=== PATIENT | male | born 1990 | race Caucasian/White ===

== ENCOUNTER 2017-11-05 09:27 | Inpatient (IN) | payer MEDICAID, MEDICARE ==
[~2017-11-05] VITALS: Ht 167.6 cm; Wt 103.4 kg
[2017-11-05 09:28] VITALS: BP 131/93
[2017-11-05 09:48] LABS: BASOPHILS % (AUTO) 0.2 % (0.0-2.0); EOSINOPHILS # (AUTO) 0.2 K/uL (0-0.4); EOSINOPHILS % (AUTO) 2.4 % (0.0-4.0); HEMATOCRIT 46.2 % (36-52); HEMOGLOBIN 15.6 g/dL (12.0-18.0); LYMPHOCYTES # (AUTO) 2.3 K/uL (2.0-11.5); MEAN CORPUSCULAR HEMOGLOBIN 27 pg (27-31); MEAN CORPUSCULAR HGB CONC 34 g/dL (33-37); MEAN CORPUSCULAR VOLUME 80.8 fL (80-94); MONOCYTES # (AUTO) 0.5 K/uL (0.8-1.0); MONOCYTES % (AUTO) 6.9 % (1.7-9.3); NEUTROPHILS # (AUTO) 4.7 K/uL (1.8-7.7); NEUTROPHILS % (AUTO) 60.5 % (42.2-75.2); PLATELET COUNT (AUTO) 296 K/uL (140-450); RED BLOOD CELL COUNT(AUTO) 5.72 MIL/uL (4.20-6.10); RED CELL DISTRIBUTION WIDTH 13.4 % (11.6-13.7); WHITE BLOOD COUNT (AUTO) 7.8 K/uL (4.8-10.8)
[2017-11-05 10:03] LABS: ALBUMIN 3.7 g/dL (3.4-5.0); ANION GAP 12.2 (8-16); ASPARTATE AMINOTRANSFERASE 14 U/L (15-37); CHLORIDE 105 mmol/L (98-107); GFR ARICAN-AMERICAN 115 mL/min (>90); GLUCOSE 109 mg/dL (74-106); POTASSIUM 4.2 mmol/L (3.5-5.1); SODIUM SERUM 139 mmol/L (136-145); TOTAL BILIRUBIN 0.7 mg/dL (0.0-1.0); UREA NITROGEN, BLOOD 9 mg/dL (7-18)
[2017-11-05 10:04] LABS: ACETAMINOPHEN < 0.5 ug/ml (10-30); SALICYLATE < 2.8 mg/dL (2.8-20.0)
[2017-11-05] MEDS ORDERED: ACETAMINOPHEN 325 MG TAB PO ONE (10:40)
[2017-11-05 10:47] LABS: APPEARANCE,URINE CLEAR (CLEAR); BILIRUBIN,URINE NEGATIVE (NEGATIVE); BLOOD, URINE NEGATIVE (NEGATIVE); COLOR,URINE YELLOW (YELLOW); LEUKOCYTE ESTERASE ,URINE TRACE (NEGATIVE); NITRITE, URINE NEGATIVE (NEGATIVE); PH,URINE 6.5 (5.0-9.0); UGLUCOSE NEGATIVE (NEGATIVE)
[2017-11-05 10:53] LABS: RBC,URINE NONE SEEN /HPF (0-5); WBC,URINE 0-5 (RARE) /HPF (0-5)
[2017-11-05 11:19] LABS: BARBITURATE, URINE NEG. ng/ml (NEG <=200); BENZODIAZEPINE, URINE NEG. ng/mL (NEG <=200); CANNABINOID, URINE NEG. ng/mL (NEG <=50); COCAINE, URINE NEG. ng/mL (NEG <=300); OPIATE, URINE NEG. ng/mL (NEG <=2000); PHENCYCLIDINE SCREEN,URINE NEG. ng/mL (NEG <=25)
[2017-11-05 14:35] VITALS: BP 133/89
[2017-11-05 16:00] VITALS: BP 112/55
[2017-11-05 17:51] LABS: FREE T4 (FREE THYROXINE) 1.15 ng/dL (0.76-1.46); MAGNESIUM 1.9 mg/dL (1.8-2.4); PHOSPHORUS 2.3 mg/dL (2.5-4.9); THYROID STIMULATING HORMONE 1.8 uIU/mL (0.34-3.74)
[2017-11-05 20:00] VITALS: BP 135/86
[2017-11-06] VITALS: BP 118/63
[2017-11-06 04:00] VITALS: BP 129/85
[2017-11-06 06:53] LABS: BASOPHILS % (AUTO) 0.4 % (0.0-2.0); EOSINOPHILS # (AUTO) 0.3 K/uL (0-0.4); HEMOGLOBIN 15.2 g/dL (12.0-18.0); LYMPHOCYTES # (AUTO) 2.9 K/uL (2.0-11.5); LYMPHOCYTES % (AUTO) 31.3 % (20.5-51.1); MEAN CORPUSCULAR HEMOGLOBIN 28 pg (27-31); MEAN CORPUSCULAR HGB CONC 34 g/dL (33-37); MEAN CORPUSCULAR VOLUME 81.3 fL (80-94); MONOCYTES # (AUTO) 0.9 K/uL (0.8-1.0); MONOCYTES % (AUTO) 10.1 % (1.7-9.3); NEUTROPHILS % (AUTO) 55.2 % (42.2-75.2); PLATELET COUNT (AUTO) 277 K/uL (140-450); RED BLOOD CELL COUNT(AUTO) 5.54 MIL/uL (4.20-6.10); RED CELL DISTRIBUTION WIDTH 13.6 % (11.6-13.7); WHITE BLOOD COUNT (AUTO) 9.1 K/uL (4.8-10.8)
[2017-11-06 07:01] LABS: ANION GAP 11.6 (8-16); CARBON DIOXIDE 26.5 mmol/L (21-32); CREATININE 0.8 mg/dL (0.7-1.3); POTASSIUM 4.1 mmol/L (3.5-5.1)
[2017-11-06 08:02] VITALS: BP 129/78
[2017-11-06 08:07] LABS: CHOL/HDL RATIO 3.2 (1-4.5); MAGNESIUM 1.8 mg/dL (1.8-2.4); PHOSPHORUS 3.9 mg/dL (2.5-4.9)
[2017-11-06] MEDS ORDERED: LACTOBACILLUS RHAMNOSUS GG 1 EACH CAP PO SCH (10:30)
[2017-11-06 16:00] VITALS: BP 124/86
[2017-11-06] MEDS ORDERED: QUEtiapine FUMARATE 25 MG TAB PO SCH (16:30)
[2017-11-06 20:00] VITALS: BP 122/69
[2017-11-06] MEDS: QUEtiapine FUMARATE 25 MG TAB PO SCH (21:41)
[2017-11-07] VITALS: BP 118/68
[2017-11-07 07:27] LABS: BASOPHILS % (AUTO) 0.2 % (0.0-2.0); EOSINOPHILS # (AUTO) 0.3 K/uL (0-0.4); EOSINOPHILS % (AUTO) 3.5 % (0.0-4.0); HEMATOCRIT 45.4 % (36-52); HEMOGLOBIN 15.5 g/dL (12.0-18.0); LYMPHOCYTES # (AUTO) 2.6 K/uL (2.0-11.5); LYMPHOCYTES % (AUTO) 31.1 % (20.5-51.1); MEAN CORPUSCULAR HEMOGLOBIN 27 pg (27-31); MEAN CORPUSCULAR HGB CONC 34 g/dL (33-37); MEAN CORPUSCULAR VOLUME 80.5 fL (80-94); MONOCYTES # (AUTO) 0.7 K/uL (0.8-1.0); MONOCYTES % (AUTO) 8.1 % (1.7-9.3); NEUTROPHILS # (AUTO) 4.8 K/uL (1.8-7.7); NEUTROPHILS % (AUTO) 57.1 % (42.2-75.2); PLATELET COUNT (AUTO) 285 K/uL (140-450); RED BLOOD CELL COUNT(AUTO) 5.64 MIL/uL (4.20-6.10); RED CELL DISTRIBUTION WIDTH 13.3 % (11.6-13.7); WHITE BLOOD COUNT (AUTO) 8.5 K/uL (4.8-10.8)
[2017-11-07 07:42] LABS: MAGNESIUM 1.8 mg/dL (1.8-2.4); PHOSPHORUS 3.5 mg/dL (2.5-4.9)
[2017-11-07 07:47] LABS: ANION GAP 10.6 (8-16); CARBON DIOXIDE 26.7 mmol/L (21-32); CREATININE 0.9 mg/dL (0.7-1.3); POTASSIUM 4.3 mmol/L (3.5-5.1)
[2017-11-07 08:00] VITALS: BP 128/79
[2017-11-07] MEDS: LACTOBACILLUS RHAMNOSUS GG 1 EACH CAP PO SCH (08:23)
[2017-11-07] MEDS: QUEtiapine FUMARATE 25 MG TAB PO SCH ×2 (08:23→21:02)
[2017-11-07 16:00] VITALS: BP 140/82
[2017-11-07 20:00] VITALS: BP 117/75
[2017-11-07] MEDS: ACETAMINOPHEN 325 MG TAB PO PRN (21:02)
[2017-11-08] VITALS: BP 125/68
[2017-11-08] MEDS: ACETAMINOPHEN 325 MG TAB PO PRN (04:35)
[2017-11-08 07:36] LABS: BASOPHILS % (AUTO) 0.3 % (0.0-2.0); EOSINOPHILS # (AUTO) 0.3 K/uL (0-0.4); EOSINOPHILS % (AUTO) 3.5 % (0.0-4.0); HEMATOCRIT 47.6 % (36-52); LYMPHOCYTES # (AUTO) 2.5 K/uL (2.0-11.5); LYMPHOCYTES % (AUTO) 29.9 % (20.5-51.1); MEAN CORPUSCULAR HEMOGLOBIN 27 pg (27-31); MEAN CORPUSCULAR HGB CONC 34 g/dL (33-37); MEAN CORPUSCULAR VOLUME 80.1 fL (80-94); MONOCYTES # (AUTO) 0.7 K/uL (0.8-1.0); MONOCYTES % (AUTO) 8.4 % (1.7-9.3); NEUTROPHILS # (AUTO) 4.9 K/uL (1.8-7.7); NEUTROPHILS % (AUTO) 57.9 % (42.2-75.2); PLATELET COUNT (AUTO) 289 K/uL (140-450); RED BLOOD CELL COUNT(AUTO) 5.95 MIL/uL (4.20-6.10); RED CELL DISTRIBUTION WIDTH 13.1 % (11.6-13.7); WHITE BLOOD COUNT (AUTO) 8.5 K/uL (4.8-10.8)
[2017-11-08 08:00] VITALS: BP 133/82
[2017-11-08 08:47] LABS: ANION GAP 14.5 (8-16); CARBON DIOXIDE 26.8 mmol/L (21-32); CREATININE 0.9 mg/dL (0.7-1.3); POTASSIUM 4.3 mmol/L (3.5-5.1)
[2017-11-08] MEDS: QUEtiapine FUMARATE 25 MG TAB PO SCH (09:07)
[2017-11-08] MEDS: LACTOBACILLUS RHAMNOSUS GG 1 EACH CAP PO SCH (09:07)
[2017-11-08] MEDS ORDERED: QUET25TA46 PO (10:16)
== END 2017-11-08 14:20 | disposition home or self-care (01) | DRG 812 ==
LOC: MED 09:27 → MTU 14:02
PROVIDERS: ADMIT Family Medicine; ATTEND Family Medicine
DX: T43.621A Poisoning by amphetamines, accidental (unintentional), initial encounter (principal); G92 Toxic encephalopathy; F10.99 Alcohol use, unspecified with unspecified alcohol-induced disorder; F15.250 Other stimulant dependence with stimulant-induced psychotic disorder with delusions; F20.1 Disorganized schizophrenia; E83.39 Other disorders of phosphorus metabolism; N39.0 Urinary tract infection, site not specified; Z59.0 Homelessness; F20.9 Schizophrenia, unspecified; F41.0 Panic disorder [episodic paroxysmal anxiety]; Z87.891 Personal history of nicotine dependence; F41.9 Anxiety disorder, unspecified; Y92.89 Other specified places as the place of occurrence of the external cause
CPT/HCPCS: 36415; 70450; 71045; 80048; 80053; 80305; 81001; 82140; 82550; 83036; 83735; 84100; 84439; 84443; 84484; 85025; 87081; 93005; 99285; G0480; G0482; J0696; J7060

== ENCOUNTER 2018-10-31 16:17 | Emergency (ER) | payer BC, MEDICARE ==
[~2018-10-31] VITALS: Ht 177.8 cm; Wt 81.6 kg
[~2018-10-31 16:17] MED LIST: QUET25TA46 PO
--- NOTE | 2018-10-31 16:19 | NUR ---
PT MARZENAA BLS TO ER BED 09
[2018-10-31 16:27] VITALS: BP 130/85
--- NOTE | 2018-10-31 16:34 | NUR ---
[place] [employer] OFFICER NEO AT BEDSIDE. PT WITH R WRIST HANDCUFFED TO [facility]. DR. BANKS AT BEDSIDE TO EVALUATE PT. PT ST ON MONITOR. HR 134. PT REFUSING TO ANSWER SOME ASSESSMENT QUESTIONS. PT AWAKE, ALERT, BREATHING EVEN AND UNLABORED. PT APPEARS UNKEMPT.
[2018-10-31] MEDS ORDERED: LORazepam 2 MG/ML VIAL IVP ONE (16:40)
[2018-10-31] MEDS ORDERED: NACL 0.9% 1,000 ML IV ONE (16:40)
--- NOTE | 2018-10-31 16:48 | NUR ---
LAB AT BEDSIDE
--- NOTE | 2018-10-31 16:50 | NUR ---
LAB AT BEDSIDE TO DRAW BLOOD.
--- NOTE | 2018-10-31 16:50 | NUR ---
PT BIB EMS AND PD C/O ALOC. PT AWAKE AND ALERT, ABLE TO FOLLOW DIRECTIONS. PT REFUSING TO ANSWER SOME ASSESSMENT QUESTIONS. PT A&O3 MINUS TIME. PT SINUS TACHYCARDIA ON MONITOR. HR 134. BREATHING EVEN AND UNLABORED. SKIN PINK, WARM, DRY, INTACT.
[2018-10-31 17:03] LABS: BASOPHILS # (AUTO) 0.1 K/uL (0.00-0.22); EOSINOPHILS # (AUTO) 0.1 K/uL (0-0.4); HEMATOCRIT 45.4 % (36-52); HEMOGLOBIN 15.4 g/dL (12.0-18.0); LYMPHOCYTES # (AUTO) 1.4 K/uL (2.0-11.5); LYMPHOCYTES % (AUTO) 12.1 % (20.5-51.1); MEAN CORPUSCULAR HEMOGLOBIN 28 pg (27-31); MEAN CORPUSCULAR HGB CONC 34 g/dL (33-37); MEAN CORPUSCULAR VOLUME 81.9 fL (80-94); MONOCYTES # (AUTO) 0.6 K/uL (0.8-1.0); MONOCYTES % (AUTO) 5.6 % (1.7-9.3); NEUTROPHILS # (AUTO) 9.2 K/uL (1.8-7.7); NEUTROPHILS % (AUTO) 80.3 % (42.2-75.2); PLATELET COUNT (AUTO) 288 K/uL (140-450); RED BLOOD CELL COUNT(AUTO) 5.54 MIL/uL (4.20-6.10); RED CELL DISTRIBUTION WIDTH 13.5 % (11.6-13.7); WHITE BLOOD COUNT (AUTO) 11.5 K/uL (4.8-10.8)
[2018-10-31 17:10] LABS: ANION GAP 13.5 (8-16); CARBON DIOXIDE 26.2 mmol/L (21-32); CREATININE 1.1 mg/dL (0.7-1.3); POTASSIUM 3.7 mmol/L (3.5-5.1)
[2018-10-31 17:18] LABS: ALBUMIN 3.7 g/dL (3.4-5.0); TOTAL BILIRUBIN 1.1 mg/dL (0.0-1.0)
--- NOTE | 2018-10-31 17:35 | NUR ---
PT CALM, RESTING QUIETLY, ST ON MONITOR. HR 112. BREATHING EVEN AND UNLABORED. [place] [employer] REMAINS AT BEDSIDE. CONTINUE TO MONITOR.
--- NOTE | 2018-10-31 18:09 | NUR ---
PT A&OX4. PT GIVEN SANDWICH AND JUICE. PT THANKFUL. PT WAS UNABLE TO URINATE, DR. BANKS AWARE. PT MEDICALLY CLEARED FOR DISCHARGE AND BOOKING AT THIS TIME.
--- NOTE | 2018-10-31 18:18 | NUR ---
PATIENT BIB [place] [employer]. PATIENT EXAMINED BY DR. BANKS . PATIENT MEDICALLY CLEARED AND RELEASED IN CUSTODY IN STABLE CONDITION. ORIGINAL PRE-BOOK FORM GIVEN TO OFFICER NEO.
--- NOTE | 2018-10-31 18:19 | NUR ---
Patient discharged with v/s stable. Written and verbal after care instructions given and explained. Patient verbalized understanding. Ambulatory with [place] [employer] COUNSELOR NEO in custody. All questions addressed prior to discharge. Advised to follow up with PMD.
[2018-10-31 18:20] VITALS: BP 124/77
== END 2018-10-31 18:20 ==
LOC: MED 16:17
DX: F15.90 Other stimulant use, unspecified, uncomplicated (principal); F17.200 Nicotine dependence, unspecified, uncomplicated; Z02.89 Encounter for other administrative examinations; Z79.899 Other long term (current) drug therapy; Z71.6 Tobacco abuse counseling
CPT/HCPCS: 36415; 80053; 84484; 85025; 93005; 96374; 99284; J2060; J7030

== ENCOUNTER 2019-11-12 09:31 | Emergency (ER) | payer BC ==
[~2019-11-12] VITALS: Ht 172.7 cm; Wt 86.2 kg
--- NOTE | 2019-11-12 09:33 | NUR ---
Patient BIBA BLS, transferred to bed 6. RN evaluating patient at bedside.
[2019-11-12 09:40] VITALS: BP 145/98
--- NOTE | 2019-11-12 09:43 | NUR ---
29 Y/O MALE BIBA BLS FOR ALTERED MENTAL STATUS. PER EMS PT WAS FOUND SLEEPING IN [facility]. [employer]ERIALS INSPECTOR OF BUSINESS CALLED EMS. ON SCENE PT WAS NOT SPEAKING. PT REFUSES TO SPEAK, SHAKES HEAD WITH QUESTIONS. PT APPEARS CONFUSED. SKIN WARM, DRY, INTACT. SITTING UPRIGHT AND PLACED ON PULSE OX. VSS. MEDHX: DENIES ALLERGIES: DENIES
--- NOTE | 2019-11-12 09:48 | NUR ---
Dr. Ross is evaluating the patient at bedside.
--- NOTE | 2019-11-12 10:01 | NUR ---
LAB AT BEDSIDE
--- NOTE | 2019-11-12 10:04 | NUR ---
PT STATES HE IS UNABLE TO GIVE URINE AT THIS TIME. WILL FOLLOW UP WITH PATIENT.
[2019-11-12 10:16] LABS: BASOPHILS # (AUTO) 0.1 K/uL (0.00-0.22); BASOPHILS % (AUTO) 0.5 % (0.0-2.0); EOSINOPHILS # (AUTO) 0.2 K/uL (0-0.4); HEMOGLOBIN 14.9 g/dL (12.0-18.0); LYMPHOCYTES # (AUTO) 2.2 K/uL (2.0-11.5); LYMPHOCYTES % (AUTO) 20.9 % (20.5-51.1); MEAN CORPUSCULAR HEMOGLOBIN 28 pg (27-31); MEAN CORPUSCULAR HGB CONC 34 g/dL (33-37); MEAN CORPUSCULAR VOLUME 82.7 fL (80-94); MONOCYTES # (AUTO) 1.2 K/uL (0.8-1.0); MONOCYTES % (AUTO) 11.1 % (1.7-9.3); NEUTROPHILS # (AUTO) 6.9 K/uL (1.8-7.7); NEUTROPHILS % (AUTO) 65.5 % (42.2-75.2); PLATELET COUNT (AUTO) 314 K/uL (140-450); RED BLOOD CELL COUNT(AUTO) 5.32 MIL/uL (4.20-6.10); RED CELL DISTRIBUTION WIDTH 12.8 % (11.6-13.7); WHITE BLOOD COUNT (AUTO) 10.6 K/uL (4.8-10.8)
--- NOTE | 2019-11-12 10:22 | NUR ---
PT PLACED APPLE JUICE IN URINAL, NO URINE COLLECTED.
[2019-11-12 10:42] LABS: ALBUMIN 3.4 g/dL (3.4-5.0); ANION GAP 15.1 (8-16); ASPARTATE AMINOTRANSFERASE 34 U/L (15-37); CARBON DIOXIDE 27.7 mmol/L (21-32); CHLORIDE 101 mmol/L (98-107); CREATININE 0.9 mg/dL (0.6-1.3); GFR ARICAN-AMERICAN 128 mL/min (>90); GLUCOSE 109 mg/dL (74-106); POTASSIUM 3.8 mmol/L (3.5-5.1); SODIUM SERUM 140 mmol/L (136-145); TOTAL BILIRUBIN 1.2 mg/dL (0.0-1.0); UREA NITROGEN, BLOOD 12 mg/dL (7-18)
--- NOTE | 2019-11-12 10:45 | NUR ---
DR LEARY RE-EVALUATING PT AT BEDSIDE
--- NOTE | 2019-11-12 10:50 | NUR ---
PT SITTING UPRIGHT EATING SANDWICH, WILL CONTINUE TO MONITOR
--- NOTE | 2019-11-12 11:54 | NUR ---
PT RESTING WITH EYES CLOSED, AROUSABLE TO NAME. WILL CONTINUE TO MONITOR
--- NOTE | 2019-11-12 12:31 | NUR ---
PT STILL REFUSES TO GIVE URINE, WILL FOLLOW UP.
--- NOTE | 2019-11-12 12:59 | NUR ---
PT STATES HE IS READY TO GO HOME, DOES NOT APPEAR ALTERED AT THIS TIME. DR LEARY MADE AWARE
[2019-11-12 13:02] VITALS: BP 122/84
--- NOTE | 2019-11-12 13:03 | NUR ---
Patient discharged with v/s stable. Written and verbal after care instructions given and explained. Patient verbalized understanding. Ambulatory with steady gait. All questions addressed prior to discharge. Advised to follow up with PMD.
== END 2019-11-12 13:03 | disposition home or self-care (01) ==
LOC: MED 09:31
DX: R41.82 Altered mental status, unspecified (principal); I10 Essential (primary) hypertension; Z79.899 Other long term (current) drug therapy
CPT/HCPCS: 36415; 80053; 85025; 99283; G0482

== ENCOUNTER 2020-12-26 03:32 | Emergency (ER) | payer BC ==
[~2020-12-26] VITALS: Ht 170.2 cm; Wt 81.6 kg
[2020-12-26 03:45] VITALS: BP 124/84
--- NOTE | 2020-12-26 03:46 | NUR ---
PT TAKEN TO BED 7
--- NOTE | 2020-12-26 03:52 | NUR ---
30 YO M BIB SELF WITH C/C OF CONSTIPATION AND DIFF URINATING [id number]. PT STATED HE ATTEMPTED TO CATHETERIZE HIMSELF WITH A USED CATH AND WAS UNABLE TO. PT STATED THAT HE STRAINS TO USE THE RR AND HAS NOT BEEN ABLE TO PASS GAS. ABD IS SOFT AND NONDISTENED. ABD BOWEL SOUNDS X4. PT ALSO STATED THAT HE HAD A BLISTER ON HIS 5TH TOE ON THE LEFT FOOT IN WHICH HE CUT WITH WIRE CUTTERS. SWELLING IS VISIBLE. NO DRAINAGE. DENIES PAIN. HX: DENIES RX: DENIES NKA
--- NOTE | 2020-12-26 04:20 | NUR ---
ERMD AT BEDSIDE FOR ASSESSMENT.
--- NOTE | 2020-12-26 04:23 | NUR ---
UNABLE TO INSERT CATH D/T BLOCKAGE IN PENIS. PT REFUSED FURTHER TREATMENT.
[2020-12-26 04:25] VITALS: BP 124/84
== END 2020-12-26 04:25 | disposition home or self-care (01) ==
LOC: MED 03:32
DX: R33.9 Retention of urine, unspecified (principal); I10 Essential (primary) hypertension; Z79.899 Other long term (current) drug therapy
CPT/HCPCS: 51702; 99284

== ENCOUNTER 2021-03-23 03:58 | Emergency (ER) | payer BC ==
[~2021-03-23] VITALS: Ht 167.6 cm; Wt 56.7 kg
[2021-03-23 03:58] VITALS: BP 148/86
--- NOTE | 2021-03-23 03:58 | NUR ---
0348--PT MARZENA MOFFETT TO CHAIR Jall[facility]
[2021-03-23 04:56] VITALS: BP 148/86
--- NOTE | 2021-03-23 04:56 | NUR ---
Patient discharged with v/s stable. Written and verbal after care instructions given and explained. Patient verbalized understanding. Police with in custody. All questions addressed prior to discharge. Advised to follow up with PMD.
== END 2021-03-23 04:56 ==
LOC: MED 03:58
DX: F15.10 Other stimulant abuse, uncomplicated (principal); Z02.89 Encounter for other administrative examinations
CPT/HCPCS: 99283

== ENCOUNTER 2023-11-07 15:23 | Emergency (ER) | payer BC ==
[~2023-11-07] VITALS: Ht 172.7 cm; Wt 79.4 kg
[2023-11-07 15:30] VITALS: BP 140/84; PULSE 120; RESP 20; TEMP 98.4; O2SAT 98
[2023-11-07 16:00] VITALS: BP 129/80; PULSE 91; RESP 20; TEMP 98.4; O2SAT 98
== END 2023-11-07 16:00 | disposition home or self-care (01) ==
LOC: MED 15:23
DX: R07.9 Chest pain, unspecified (principal); F15.90 Other stimulant use, unspecified, uncomplicated; Z79.899 Other long term (current) drug therapy
CPT/HCPCS: 99283